=== PATIENT | male | born 1940 | race Caucasian/White ===

== ENCOUNTER → 2025-06-05 03:38 | Outpatient (CLI) | payer MEDICARE, SELFPAY ==
--- NOTE | 2025-06-05 07:00 | DI.MRI_ITS ---
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 Both noninfused and contrast infused sequences were performed. Internal auditory canal protocol was used. IV Contrast injected was 12 cc Dotarem. COMPARISON: No exams were available for comparison FINDINGS: CEREBRAL PARENCHYMA: No evidence of intracranial hemorrhage, mass effect nor shift of midline structure. No evidence of cerebellar tonsillar ectopia. There is septum cavum pellucidum. There is symmetrical atrophy. Size of the lateral ventricles are slightly out of proportion compared to the size of the overlying cortical sulci. However, this is probably visually exaggerated by the septum cavum pellucidum. Cannot rule out NPH. There is no significant focal signal abnormality in the cerebellar hemispheres nor within the chau and midbrain. There is mild focal signal abnormality in both thalami. There are are also a few foci of signal abnormality in left side of the corpus callosum, measuring up to 7 mm. There is also focus of FLAIR bright signal abnormality in the right external capsule, not associated with hemorrhage, surrounding edema, nor restricted diffusion. DWI: No areas of restricted diffusion to suggest acute ischemic event. SWI: No microhemorrhages evident. There are no ring enhancing lesions in the brain. There is no abnormal meningeal enhancement. INTERNAL AUDITORY CANALS: There is no evidence of mass in the cerebellopontine angles and there is no evidence of enhancing intra canalicular acoustic neuroma- schwannoma. The thin sub mm slice thickness sequence reveals normal appearance of the 7th and 8th cranial nerves within both internal auditory canals. PITUITARY GLAND: No mass nor parasellar abnormality. No obvious abnormality in the cavernous sinuses. FLOW VOIDS: The expected flow void are noted. No evidence of obvious aneurysm nor obvious vascular malformation. PARANASAL SINUSES: There is mucosal thickening in the right maxillary sinus as well as opacification the left frontal sinus. Right frontal sinus is clear. There is opacification of some ethmoidal air cells bilateral. Sphenoid sinuses are clear. There are no mastoid effusions. ORBITS: No obvious abnormal findings. IMPRESSION: 1. No evidence of acoustic neuroma/schwannoma, as per request. 2. No abnormal enhancing intracranial findings. There are no ring enhancing lesions in the brain and there is no abnormal meningeal enhancement. 3. There are few small sub cm FLAIR bright foci of signal abnormality in the supra ventricular white matter most probably consistent with chronic small vessel disease. There is no associated. Hemorrhage, surrounding edema, nor restricted diffusion to suggest acute ischemic event. 4. There is generalized symmetrical atrophy. Size of the lateral ventricles appears slightly out of proportion when compared to the size of the overlying cortical sulci. This may indicate an element of normal pressure hydrocephalus. However, the size lateral ventricles appears to be exaggerated by the presence of some cavum pellucidum here. Correlation with any clinical triad of dementia, gait disturbance, and incontinence (NPH) recommended DATA REPOSITORY:
[2025-06-05] MEDS: Normal Saline Flush 10 ML SYR IVP (12:22)
[2025-06-05] MEDS: Gadoterate meglumine 20 ML SYRINGE IVP (12:22)
== END ==
LOC: DI 03:38
PROVIDERS: PCP Family Medicine; Visit Provider Otolaryngology
DX: I67.82 Cerebral ischemia (principal)
CPT/HCPCS: 70553